=== PATIENT | male | born 2000 | race Caucasian/White ===

== ENCOUNTER 2023-01-31 02:51 | Emergency (ER) | payer MEDICAID ==
[~2023-01-31] VITALS: Ht 170.2 cm; Wt 78.0 kg
[2023-01-31 03:06] VITALS: BP 123/79; PULSE 112; RESP 18; TEMP 98.1; O2SAT 96
[2023-01-31] MEDS ORDERED: AMOXICILLIN/POTASSIUM CLAVULANATE 875/125MG TAB PO STA (05:21)
[2023-01-31] MEDS ORDERED: KETOROLAC 15MG/ML VIAL IM ONE (05:30)
[2023-01-31] MEDS ORDERED: TETANUS, DIPHTHERIA, PERTUSSIS VAC/PF 0.5ML (>10YR OLD) IM ONE (05:30)
[2023-01-31] MEDS ORDERED: AMOX1TAB16 MT (06:20)
[2023-01-31] MEDS ORDERED: NAPR-681 MT (06:20)
== END 2023-01-31 07:29 | disposition home or self-care (01) ==
LOC: ER 02:51
DX: S61.411A Laceration without foreign body of right hand, initial encounter (principal); M54.9 Dorsalgia, unspecified; Z23 Encounter for immunization; V89.2XXA Person injured in unspecified motor-vehicle accident, traffic, initial encounter; W22.10XA Striking against or struck by unspecified automobile airbag, initial encounter; Y93.89 Activity, other specified; Y92.89 Other specified places as the place of occurrence of the external cause; Y99.8 Other external cause status
CPT/HCPCS: 99284; 73130; 90715; 90471; 96372; J1885; 99283